=== PATIENT | male | born 1975 | race Caucasian/White ===

== ENCOUNTER 2020-11-25 11:28 | Emergency (ER) | payer SELFPAY ==
--- NOTE | 2020-11-25 12:23 | RAD ---
XR Hand Rt 3 View STANDARD History: Bilateral hand pain Comparison: None. Findings: No acute displaced fracture or malalignment. Old small finger metacarpal neck fracture and proximal phalanx fracture. No erosions or periostitis. Impression: Chronic findings with old injury of the small finger. No acute osseous abnormality.
== END 2020-11-25 12:30 | disposition home or self-care (01) ==
LOC: MADERS 11:28
DX: M19.041 Primary osteoarthritis, right hand (principal); I10 Essential (primary) hypertension; F17.210 Nicotine dependence, cigarettes, uncomplicated; Z79.899 Other long term (current) drug therapy; X58.XXXA Exposure to other specified factors, initial encounter

== ENCOUNTER 2021-04-09 16:56 | Emergency (ER) | payer SELFPAY ==
[2021-04-09] MEDS ORDERED: Dexamethasone 4 MG TAB ONE (17:30)
== END 2021-04-09 17:30 | disposition home or self-care (01) ==
LOC: MADERS 16:56
DX: T63.441A Toxic effect of venom of bees, accidental (unintentional), initial encounter (principal); F17.210 Nicotine dependence, cigarettes, uncomplicated; I10 Essential (primary) hypertension; Z79.899 Other long term (current) drug therapy
CPT/HCPCS: 99282; J8540